=== PATIENT | female | born 1980 | race Caucasian/White ===

== ENCOUNTER 2017-10-25 16:02 | Emergency (ER) | payer SELFPAY ==
[2017-10-25] MEDS ORDERED: PROCHLORPERAZINE EDISYLATE INJ 10 MG/2 ML VIAL IV ONE (16:41)
[2017-10-25] MEDS ORDERED: KETOROLAC TROMETHAMINE INJ/PF 30 MG/1 ML SDV IV ONE (16:41)
[2017-10-25] MEDS ORDERED: NORMAL SALINE 1000 ML 1,000 ML IV ONE (16:41)
[2017-10-25] MEDS ORDERED: ONDANSETRON HCL INJ/PF 4 MG/2 ML SDV IV ONE (16:41)
--- NOTE | 2017-10-25 16:45 | ER Document Report ---
ED Medical Screen (RME) - General Chief Complaint: Headache Stated Complaint: HEADACHE/NECK PAIN Time Seen by Provider: 10/25/17 16:36 TRAVEL OUTSIDE OF THE [place] IN LAST 30 DAYS: No - HPI Notes: 10/25/17 16:44 Headache neck pain ongoing for 24 hours. States history of migraines but normally Excedrin will cure. Patient denies any trauma - Related Data Allergies/Adverse Reactions: cefuroxime [From Ceftin] Allergy (Verified 10/25/17 16:05) levofloxacin [From Levaquin] Allergy (Verified 10/25/17 16:05) Penicillins Allergy (Verified 10/25/17 16:05) Past Medical History - Social History Chew tobacco use (# tins/day): No Frequency of alcohol use: None Drug Abuse: None Pulmonary Medical History: Reports: Hx Asthma Neurological Medical History: Reports: Hx Migraine Renal/ Medical History: Denies: Hx Peritoneal Dialysis Past Surgical History: Reports: Hx Section, Hx Hysterectomy Review of Systems - Review of Systems Constitutional: Other - Headaches Physical Exam - Vital signs Vitals: Temp Pulse Resp BP Pulse Ox 98.4 F 63 20 161/107 H 98 10/25/17 16:11 10/25/17 16:11 10/25/17 16:11 10/25/17 16:11 10/25/17 16:11 - General General appearance: Appears well In distress: None Course - Vital Signs Vital signs: Temp Pulse Resp BP Pulse Ox 98.4 F 63 20 161/107 H 98 10/25/17 16:11 10/25/17 16:11 10/25/17 16:11 10/25/17 16:11 10/25/17 16:11
--- NOTE | 2017-10-25 17:25 | ER Document Report ---
ED Headache - General Chief Complaint: Headache Stated Complaint: HEADACHE/NECK PAIN Time Seen by Provider: 10/25/17 16:36 Mode of Arrival: Ambulatory Information source: Patient TRAVEL OUTSIDE OF THE [place] IN LAST 30 DAYS: No - HPI Patient complains to provider of: Headache Patient reports: Hx chronic headaches Onset: Other - 4 days Onset was: Gradual Timing: Worse Quality of pain: Achy, Fullness, Pressure Severity: Moderate Pain Level: 4 Associated symptoms: Neck pain Similar symptoms previously: Yes Recently seen / treated by doctor: No Notes: Patient is a 36-year-old female presenting to the emergency room today complaining of headache 4 days with worsening over the past 24 hours, radiating down her neck at times, she reports some occasional blurred vision, but denies nausea or vomiting, no fevers, no head injury, she does have a history of migraine headaches but her typical medications will not relieve this headache, she also has a history of hypertension but was taken off of her medications by her primary care provider because her blood pressures were under control at one point in time - Related Data Allergies/Adverse Reactions: cefuroxime [From Ceftin] Allergy (Verified 10/25/17 16:05) levofloxacin [From Levaquin] Allergy (Verified 10/25/17 16:05) Penicillins Allergy (Verified 10/25/17 16:05) Past Medical History - General Information source: Patient - Social History Smoking Status: Current Every Day Smoker Chew tobacco use (# tins/day): No Frequency of alcohol use: None Drug Abuse: None Family History: Reviewed & Not Pertinent Patient has suicidal ideation: No Patient has homicidal ideation: No Pulmonary Medical History: Reports: Hx Asthma Neurological Medical History: Reports: Hx Migraine Renal/ Medical History: Denies: Hx Peritoneal Dialysis Past Surgical History: Reports: Hx Section, Hx Hysterectomy Review of Systems - Review of Systems Constitutional: No symptoms reported EENT: No symptoms reported Cardiovascular: No symptoms reported Respiratory: No symptoms reported Gastrointestinal: No symptoms reported Genitourinary: No symptoms reported Female Genitourinary: No symptoms reported Musculoskeletal: No symptoms reported Skin: No symptoms reported Hematologic/Lymphatic: No symptoms reported Neurological/Psychological: See HPI -: Yes All other systems reviewed and negative Physical Exam - Vital signs Vitals: Temp Pulse Resp BP Pulse Ox 98.4 F 63 20 161/107 H 98 10/25/17 16:11 10/25/17 16:11 10/25/17 16:11 10/25/17 16:11 10/25/17 16:11 - Notes Notes: - General General appearance: Appears well, Alert In distress: None - HEENT Head: Normocephalic, Atraumatic Eyes: Normal Conjunctiva: Normal Extraocular movements intact: Yes Eyelashes: Normal Pupils: PERRL - Respiratory Respiratory status: No respiratory distress - Cardiovascular Rhythm: Regular - Abdominal Inspection: Normal - Back Back: Normal - Extremities General upper extremity: Normal inspection General lower extremity: Normal inspection - Neurological Neuro grossly intact: Yes Orientation: AAOx4 [place] Coma Scale Eye Opening: Spontaneous [place] Coma Scale Verbal: Oriented [place] Coma Scale Motor: Obeys Commands [place] Coma Scale Total: 15 - Psychological Associated symptoms: Normal affect, Normal mood - Skin Skin Temperature: Warm Skin Moisture: Dry Skin Color: Normal - HEENT Head: Normocephalic, Atraumatic Eyes: Normal Conjunctiva: Normal Extraocular movements intact: Yes Eyelashes: Normal Pupils: PERRL Sinus: Normal Nasal: Normal Mouth/Lips: Normal Mucous membranes: Normal Pharynx: Normal Neck: Other - Mild paraspinal muscle tenderness bilaterally, no midline tenderness or step-offs, no meningeal signs, patient is able to move her head and altered is without difficulty but does report worsens her headache at times Course - Re-evaluation Re-evalutation: 10/25/17 20:15 She is sleeping comfortably, easily awakens, reports feeling much better, headache is resolved, CT scan findings discussed at bedside which are unremarkable, patient will be discharged with prescription for antinausea meds to use for migraine headaches, advised to follow-up with primary care or neurology, return if symptoms worsen, patient acknowledges understanding and agreement with this plan - Vital Signs Vital signs: Temp Pulse Resp BP Pulse Ox 98.4 F 63 20 161/107 H 98 10/25/17 16:11 10/25/17 16:11 10/25/17 16:11 10/25/17 16:11 10/25/17 16:11 - Diagnostic Test Radiology reviewed: Image reviewed, Reports reviewed Discharge - Discharge Clinical Impression: Headache Qualifiers: Headache type: unspecified Headache chronicity pattern: acute headache Intractability: not intractable Qualified Code(s): R51 - Headache Condition: Stable Disposition: HOME, SELF-CARE Instructions: Antinausea Medication ([facility]), Headache ([facility]) Additional Instructions: Follow up with your primary care provider and neurologist in one to 2 days. Return to the emergency room immediately if symptoms worsen or any additional concerns. Prescriptions: Metoclopramide HCl [Reglan 10 mg Tablet] 1 - 2 tab PO ASDIR PRN #25 tablet PRN Reason: Ondansetron [Zofran Odt 4 mg Tablet] 1 - 2 tab PO Q4H #10 tab.rapdis Referrals: KYUNG GUERRA MD [NO LOCAL MD] - Follow up as needed
[2017-10-25] MEDS ORDERED: METOCLOPRAMIDE HCL INJ/PF 10 MG/2 ML SDV IV ONE (18:40)
[2017-10-25] MEDS ORDERED: DIPHENHYDRAMINE HCL 50 MG/ML VIAL IV ONE (18:40)
--- NOTE | 2017-10-25 19:38 | RADIOLOGY REPORT (SQ) ---
EXAM DESCRIPTION: CT HEAD WITHOUT COMPLETED DATE/TIME: 10/25/2017 7:10 pm REASON FOR STUDY: headache COMPARISON: None. TECHNIQUE: Axial images acquired through the brain without intravenous contrast. Images reviewed wi th bone, brain and subdural windows. Images stored on PACS. All CT scanners at this facility use dose modulation, iterative reconstruction, and/or weight based d osing when appropriate to reduce radiation dose to as low as reasonably achievable (ALARA). [facility]: Dose Right [facility]: CareDose [facility]: Dose Right [facility]: Teradose 4D [facility]: [employer] RADIATION DOSE: CT Rad equipment meets quality standard of care and radiation dose reduction techniq ues were employed. CTDIvol: 53.2 mGy. DLP: 911 mGy-cm. mGy. LIMITATIONS: None. FINDINGS: VENTRICLES: Normal size and contour. CEREBRUM: No masses. No hemorrhage. No midline shift. No evidence for acute infarction. Normal gra y/white matter differentiation. No areas of low density in the white matter. CEREBELLUM: No masses. No hemorrhage. No alteration of density. No evidence for acute infarction. EXTRAAXIAL SPACES: No fluid collections. No masses. ORBITS AND GLOBE: No intra- or extraconal masses. Normal contour of globe without masses. CALVARIUM: No fracture. PARANASAL SINUSES: No fluid or mucosal thickening. SOFT TISSUES: No mass or hematoma. OTHER: No other significant finding. IMPRESSION: NORMAL BRAIN CT WITHOUT CONTRAST. EVIDENCE OF ACUTE STROKE: NO. COMMENT: Quality ID # [id number]: Final reports with documentation of one or more dose reduction techniques (e.g., Automated exposure control, adjustment of the mA and/or kV according to patient size, use of iterative reconstruction technique) TECHNICAL DOCUMENTATION: JOB ID: [id number] [employer]- All Rights Reserved Reading location - IP/workstation name: [email or web address]
[2017-10-25 20:42] VITALS: BP 135/90
== END 2017-10-25 20:42 | disposition home or self-care (01) ==
LOC: ER 16:02
DX: R51 Headache (principal); M54.2 Cervicalgia; H53.8 Other visual disturbances; F17.200 Nicotine dependence, unspecified, uncomplicated; J45.909 Unspecified asthma, uncomplicated; I10 Essential (primary) hypertension; Z86.69 Personal history of other diseases of the nervous system and sense organs; Z88.1 Allergy status to other antibiotic agents; Z88.0 Allergy status to penicillin
CPT/HCPCS: 99284; 96361; 96374; 96375; 70450; J1200; J1885; J2765; J0780; J7030

== ENCOUNTER 2017-12-12 03:04 | Emergency (ER) | payer BC ==
[2017-12-12] MEDS ORDERED: DEXAMETHASONE SOD PHOS INJ 10 MG/1 ML VIAL IM ONE (04:16)
--- NOTE | 2017-12-12 04:21 | ER Document Report ---
ED General Pain - General Chief Complaint: Back Pain Stated Complaint: FLANK PAIN Time Seen by Provider: 12/12/17 04:06 Notes: Patient is a 37-year-old female presenting to the emergency department complaining of her right buttocks pain radiating down her right leg. Patient states she has a history of sciatic nerve impingement. Patient denies any surgeries for problem. Patient also denies any traumatic injuries recently. Denies numbness or tingling to any extremity, loss of bowel or bladder, urinary retention, fever. Patient states over the last few days she has been taking Tylenol and naproxen for the discomfort which has only helped a little bit. TRAVEL OUTSIDE OF THE [place] IN LAST 30 DAYS: No - Related Data Allergies/Adverse Reactions: cefuroxime [From Ceftin] Allergy (Verified 10/25/17 16:05) levofloxacin [From Levaquin] Allergy (Verified 10/25/17 16:05) Penicillins Allergy (Verified 10/25/17 16:05) Past Medical History - General Information source: Patient - Social History Smoking Status: Current Every Day Smoker Chew tobacco use (# tins/day): No Frequency of alcohol use: None Drug Abuse: None Lives with: Family Family History: Reviewed & Not Pertinent Patient has suicidal ideation: No Patient has homicidal ideation: No Pulmonary Medical History: Reports: Hx Asthma Neurological Medical History: Reports: Hx Migraine Renal/ Medical History: Denies: Hx Peritoneal Dialysis Past Surgical History: Reports: Hx Section, Hx Hysterectomy Review of Systems - Review of Systems Constitutional: No symptoms reported EENT: No symptoms reported Cardiovascular: No symptoms reported Respiratory: No symptoms reported Gastrointestinal: No symptoms reported Genitourinary: See HPI Female Genitourinary: No symptoms reported Musculoskeletal: See HPI Skin: No symptoms reported Hematologic/Lymphatic: No symptoms reported Neurological/Psychological: See HPI Physical Exam - Vital signs Vitals: Temp Pulse Resp BP Pulse Ox 97.9 F 81 18 146/96 H 97 12/12/17 03:05 12/12/17 03:05 12/12/17 03:05 12/12/17 03:05 12/12/17 03:05 - Notes Notes: GENERAL: Alert, interacts well. No acute distress. HEAD: Normocephalic, atraumatic. EYES: Pupils equal, round, and reactive to light. Extraocular movements intact. ENT: Oral mucosa moist, tongue midline. NECK: Full range of motion. Supple. Trachea midline. LUNGS: Clear to auscultation bilaterally, no wheezes, rales, or rhonchi. No respiratory distress. HEART: Regular rate and rhythm. No murmur ABDOMEN: Soft, non-tender. Non-distended. Bowel sounds present in all 4 quadrants. EXTREMITIES: Moves all 4 extremities spontaneously. No edema, normal radial and dorsalis pedis pulses bilaterally. No cyanosis. Patient states muscular pain upon palpation of her right buttocks and into posterior right leg. Pain upon straight leg raise right side 45. Left lower extremity, left upper extremity, right upper extremity within normal limits. BACK: no cervical, thoracic, lumbar midline tenderness. No saddle anesthesia, normal distal neurovascular exam. NEUROLOGICAL: Alert and oriented x3. Normal speech. cranial nerves II through XII grossly intact. PSYCH: Normal affect, normal mood. SKIN: Warm, dry, normal turgor. No rashes or lesions noted. Course - Re-evaluation Re-evalutation: 12/12/17 05:22 Pt. currently sleeping. Upon waking Pt up she states she feels "a lot better." Talked to Pt. about RX for Toradol at home and need to f/u with a PCP in the next 24-48. return precautions given. - Vital Signs Vital signs: Temp Pulse Resp BP Pulse Ox 98.0 F 79 18 122/72 93 12/12/17 05:46 12/12/17 05:46 12/12/17 03:05 12/12/17 05:46 12/12/17 05:46 Discharge - Discharge Clinical Impression: Sciatic nerve pain Qualifiers: Laterality: right Qualified Code(s): M54.31 - Sciatica, right side Condition: Stable Disposition: HOME, SELF-CARE Instructions: Warm Packs ([facility]) Additional Instructions: You have been seen and treated in the emergency department for sciatic nerve pain. You were given an NSAID and steroids for your discomfort. Continue prescriptions as needed. Return to the emergency department should your pain increased, numbness or tingling develop, you lose control of your bowels or bladder. Follow-up with your primary care in 24-48 hours. Prescriptions: Ketorolac Tromethamine [Toradol 10 mg Tablet] 10 mg PO Q8HP PRN #24 tablet PRN Reason: Referrals: MAYRA GALEANA MD [ACTIVE STAFF] - Follow up as needed
[2017-12-12 05:51] VITALS: BP 122/72
== END 2017-12-12 05:50 | disposition home or self-care (01) ==
LOC: ER 03:04
DX: M54.31 Sciatica, right side (principal); M54.9 Dorsalgia, unspecified; R10.9 Unspecified abdominal pain; M79.604 Pain in right leg; F17.200 Nicotine dependence, unspecified, uncomplicated; J45.909 Unspecified asthma, uncomplicated
CPT/HCPCS: 99283; 96372; J1100

== ENCOUNTER 2018-02-13 16:27 | Emergency (ER) | payer BC ==
--- NOTE | 2018-02-13 17:02 | ER Document Report ---
ED Medical Screen (RME) - General Chief Complaint: Diarrhea Stated Complaint: FLU LIKE SYMPTOMS Time Seen by Provider: 02/13/18 16:52 Notes: 37-year-old female patient started with sore throat and head and sinus congestion 1 week ago. Has been taking Sudafed. Began having fevers 5 days ago with temps up to 103. 3 days ago she began having diarrhea. Has been taking Imodium for this. Continues with all of these symptoms. She does have a history of asthma and lupus. There has not been a cough. I have greeted and performed a rapid initial assessment of this patient. A comprehensive ED assessment and evaluation of the patient, analysis of test results and completion of the medical decision making process will be conducted by additional ED providers. TRAVEL OUTSIDE OF THE [place] IN LAST 30 DAYS: No - Related Data Allergies/Adverse Reactions: cefuroxime [From Ceftin] Allergy (Verified 02/13/18 16:28) levofloxacin [From Levaquin] Allergy (Verified 02/13/18 16:28) Penicillins Allergy (Verified 02/13/18 16:28) Past Medical History - Social History Frequency of alcohol use: None Drug Abuse: None Pulmonary Medical History: Reports: Hx Asthma Neurological Medical History: Reports: Hx Migraine Renal/ Medical History: Denies: Hx Peritoneal Dialysis Past Surgical History: Reports: Hx Section, Hx Hysterectomy Physical Exam - Vital signs Vitals: Temp Pulse Resp BP Pulse Ox 98.9 F 110 H 16 121/81 96 02/13/18 16:31 02/13/18 16:31 02/13/18 16:31 02/13/18 16:31 02/13/18 16:31 Course - Vital Signs Vital signs: Temp Pulse Resp BP Pulse Ox 98.9 F 110 H 16 121/81 96 02/13/18 16:31 02/13/18 16:31 02/13/18 16:31 02/13/18 16:31 02/13/18 16:31
[2018-02-13 17:22] LABS: ABSOLUTE BASOPHILS # (AUTO) 0.1 10^3/uL (0.0-0.2); ABSOLUTE EOSINOPHILS # (AUTO) 0.3 10^3/uL (0.0-0.6); ABSOLUTE LYMPHOCYTES (AUTO) 2.7 10^3/uL (0.5-4.7); ABSOLUTE MONOCYTES (AUTO) 1.4 10^3/uL (0.1-1.4); BASOPHILS % (AUTO) 0.7 % (0-2); EOSINOPHILS % (AUTO) 1.5 % (0-6); HEMATOCRIT 43.3 % (36.0-47.0); HEMOGLOBIN 14.4 g/dL (12.0-15.5); LYMPHOCYTES % (AUTO) 16.4 % (13-45); MEAN CORPUSCULAR HEMOGLOBIN 28.8 pg (27.0-33.4); MEAN CORPUSCULAR HGB CONC 33.4 g/dL (32.0-36.0); MEAN CORPUSCULAR VOLUME 86 fl (80-97); MONOCYTES % (AUTO) 8.3 % (3-13); PLATELET COUNT 429 10^3/uL (150-450); RED BLOOD COUNT 5.02 10^6/uL (3.72-5.28); RED CELL DISTRIBUTION WIDTH 15.3 % (11.5-14.0); SEGMENTED NEUTROPHILS % (AUTO) 73.1 % (42-78); TOTAL CELLS COUNTED % (AUTO) 100 %; WHITE BLOOD COUNT 16.4 10^3/uL (4.0-10.5)
[2018-02-13 17:38] LABS: ALANINE AMINOTRANSFERASE 40 U/L (9-52); ALBUMIN 4.3 g/dL (3.5-5.0); ALKALINE PHOSPHATASE 105 U/L (38-126); ANION GAP 13 (5-19); ASPARTATE AMINO TRANSFERASE 44 U/L (14-36); BILIRUBIN,DIRECT 0.3 mg/dL (0.0-0.4); BILIRUBIN,TOTAL 0.4 mg/dL (0.2-1.3); BLOOD UREA NITROGEN 6 mg/dL (7-20); CALCIUM 9.7 mg/dL (8.4-10.2); CARBON DIOXIDE 28 mmol/L (22-30); CHLORIDE 102 mmol/L (98-107); GLUCOSE 94 mg/dL (75-110); POTASSIUM 4.3 mmol/L (3.6-5.0); SODIUM 143.2 mmol/L (137-145); TOTAL PROTEIN 7.3 g/dL (6.3-8.2)
--- NOTE | 2018-02-13 18:01 | ER Document Report ---
ED General - General Chief Complaint: Diarrhea Stated Complaint: FLU LIKE SYMPTOMS Time Seen by Provider: 02/13/18 16:52 Notes: Patient says that she began to be sick about a week ago with nasal congestion and a sore throat. After 2-3 days, her symptoms improved and she felt better and no longer had the sore throat. About 3-4 days ago, patient developed nausea and diarrhea but not vomiting. She has noticed some blood in the toilet which she thinks is due to a hemorrhoid. No swollen areas are there. She says in the last 4 days, she has been running intermittent fevers of 101 - 102 degrees. Still has some runny nose. Has a history of developing pneumonia when she has symptoms like this. She has asthma. Also continues to smoke 1/2 pack of cigarettes a day. Patient was diagnosed with lupus in 2005. Patient recently had back surgery, about 1 month ago, for emergency herniation of L5-S1 disc. She had been having problems with her back for several months and taken multiple prednisone Dosepaks , but has not had any prednisone for about a week now. Patient has bipolar disorder and depression. TRAVEL OUTSIDE OF THE [place] IN LAST 30 DAYS: No - Related Data Allergies/Adverse Reactions: cefuroxime [From Ceftin] Allergy (Verified 02/13/18 16:28) levofloxacin [From Levaquin] Allergy (Verified 02/13/18 16:28) Penicillins Allergy (Verified 02/13/18 16:28) Past Medical History - Social History Smoking Status: Current Every Day Smoker Frequency of alcohol use: None Drug Abuse: None Family History: Reviewed & Not Pertinent Patient has suicidal ideation: No Patient has homicidal ideation: No Pulmonary Medical History: Reports: Hx Asthma Neurological Medical History: Reports: Hx Migraine Past Surgical History: Reports: Hx Section, Hx Hysterectomy Review of Systems - Review of Systems Notes: REVIEW OF SYSTEMS: CONSTITUTIONAL : See HPI. Intermittent fever for 4 - 5 days. EENT: Denies eye, ear, nose or mouth or throat pain or other symptoms. CARDIOVASCULAR: Denies chest pain. RESPIRATORY: Denies cough, chest congestion, or shortness of breath. GASTROINTESTINAL: Denies abdominal pain or nausea, vomiting, or diarrhea. GENITOURINARY: Denies difficulty or painful urinating, urinary frequency, blood in urine. Does not get frequent UTIs. Is making normal amount of urine. MUSCULOSKELETAL: Chronic back pain, better since she had emergency surgery for a herniated disc about a month ago. Denies neck pain. Denies joint pain or swelling. SKIN: Denies rash or skin lesions. NEUROLOGICAL: Denies LOC or altered mental status. Denies current headache. Denies sensory loss or motor deficits. ALL OTHER SYSTEMS REVIEWED AND NEGATIVE. Physical Exam - Vital signs Vitals: Temp Pulse Resp BP Pulse Ox 98.9 F 110 H 16 121/81 96 02/13/18 16:31 02/13/18 16:31 02/13/18 16:31 02/13/18 16:31 02/13/18 16:31 Interpretation: Normal, Tachycardic - Mild - Notes Notes: PHYSICAL EXAMINATION: GENERAL: Well-appearing, in no acute distress. 135 kg. HEAD: Atraumatic, normocephalic. EYES: Pupils equal round and reactive to light, extraocular movements intact. ENT: oropharynx erythematous but without exudates. Moist mucous membranes. Voice is normal. No hoarseness. Can swallow without difficulty. NECK: Normal range of motion, supple. No stiffness at all to flexion. LUNGS: Breath sounds clear and equal bilaterally. HEART: Regular rate and rhythm without murmurs. Slightly tachycardic at just over 100 at the bedside by me. ABDOMEN: Soft, nontender. No guarding or rebound. No masses. BACK: No tenderness throughout entire back. EXTREMITIES: Normal range of motion without pain. NEUROLOGICAL: Normal speech, normal gait. Normal sensory, motor, and reflex exams. Awake, alert, and oriented x3. Cranial nerves normal. PSYCH: Normal mood, normal affect. SKIN: Warm, dry, no rashes. Course - Re-evaluation Re-evalutation: 02/13/18 18:48 With exception of her white cell count of 16,400 with a normal differential, patient's remaining studies are all essentially normal. Rapid strep and flu test were both negative. Urinalysis negative. Chest x-ray normal to me. Chem- 12 essentially normal. Cultures have been obtained. Patient is unable to give a stool specimens and says this is the longest she has gone without bowel movements in 5 days. 02/13/18 19:49 Patient still has not been able to get a stool specimen for us. I am going to send her home with a order for an outpatient stool culture and C. difficile if she still having symptoms Thursday. She needs medication for nausea so I will send her home with some Zofran. We will observe for any signs of a source for infection. - Vital Signs Vital signs: Temp Pulse Resp BP Pulse Ox 98.9 F 110 H 16 121/81 96 02/13/18 16:31 02/13/18 16:31 02/13/18 16:31 02/13/18 16:31 02/13/18 16:31 - Laboratory Result Diagrams: 02/13/18 17:09 02/13/18 17:09 Laboratory results interpreted by me: 02/13/18 02/13/18 02/13/18 17:09 17:09 17:51 WBC 16.4 H RDW 15.3 H Absolute Neutrophils 12.0 H BUN 6 L AST 44 H Ur Leukocyte Esterase TRACE H - Diagnostic Test Radiology results interpreted by me: 02/13/18 18:48 Chest x-ray is normal. Discharge - Discharge Clinical Impression: Diarrhea, Leukocytosis, Lupus Condition: Stable Disposition: HOME, SELF-CARE Additional Instructions: VOMITING: Vomiting (or nausea without vomiting) can be caused by many other different problems. It can mean that something's wrong with the stomach, such as ulcers or inflammation or the intestinal tract, such as appendicitis. But it can also be a symptom of a problem that has nothing to do with the stomach or intestines. Vomiting is common with severe headaches, earaches, tonsillitis, and kidney infections, etc. We see it with pneumonia or heart attacks. Drugs can cause nausea and vomiting. Many abdominal problems cause vomiting; for example, gallstones, kidney stones, pancreatitis, and intestinal obstruction ( blocked bowels). In most cases, curing the vomiting depends on fixing the problem that caused it. For temporary relief, we may use an anti-nausea medicine. For home use, we can prescribe suppositories, chewable pills, pills that dissolve in the mouth, or liquid anti-nausea drugs. If the vomiting seems to be caused by a problem in the stomach, acid-suppressing drugs may be prescribed as well. It's important to avoid dehydration. Sip small amounts of clear liquids ( soft drinks, tea, broth, etc) . Try to take fluids frequently even if you are vomiting to prevent dehydration. Take increasing amounts of fluid and when liquids are being consumed successfully, advance to small amounts of bland food (toast, soups, mashed potatoes, etc.) until you are able to resume a regular diet. Avoid aspirin, tobacco, and alcohol. If the vomiting worsens, if the problem that's making you vomit worsens, or if there's evidence of bleeding in the stomach (such as black, tarry stool, or bloody or black vomit), you should return immediately. Also, return if abdominal pain worsens or becomes localized to one area or you develop high fever. Call your doctor if you aren't improved in 24 hours. DIARRHEA, NON-SPECIFIC: Diarrhea means frequent, watery stools. There are many causes. Any problem that keeps the intestinal tract from absorbing water from the stool can lead to diarrhea. A sudden new diarrhea problem is usually caused by a virus, food sensitivity, toxic bacteria, or drugs. In this case, we expect the problem to go away soon. Testing is done only if you seem seriously ill from the diarrhea. If you have chronic diarrhea, or diarrhea that keeps coming back, we need to find out why. Chronic diarrhea can be due to inflammation of the bowels such as Crohn's disease or ulcerative colitis, food sensitivity such as intolerance to lactose or wheat protein, irritable bowel syndrome, and other problems. If your diarrhea is a significant problem but it's not clear why you have it, we' ll refer you to a specialist for further testing. During an episode of diarrhea, drink small amounts (two to six ounces) of clear liquids (soft drinks, sport drinks, herb teas, broth, etc). Take fluids frequently to prevent dehydration. It's usually not a problem to take mild anti- diarrhea medication such as Kaopectate or Pepto-Bismol. As the diarrhea eases, advance to small amounts of bland food (mashed potato, toast) for 24 hours. Call the physician if blood appears in your vomit or stool, if vomiting lasts longer than 24 hours, if the abdominal pain worsens or becomes localized to one area, if you develop high fever, or if you become lightheaded and weak. Leukocytosis Leukocytosis is an elevation or increase in the number of white blood cells. Nearly all leukocytosis is due to one type of white blood cell, the polymorphonuclear leukocyte (PMN). These conditions are more accurately referred to as neutrophilia. The most common and important cause of neutrophilia is infection, and most infections cause neutrophilia. The degree of elevation often indicates the severity of the infection. Tissue damage from other causes raises the white count for similar reasons. Burnett, infarction (cutting off the blood supply to a region of the body so that it dies), crush injuries, inflammatory diseases, poisonings, and severe diseases, like kidney failure and diabetic ketoacidosis, all cause neutrophilia. Counts almost as high occur in leukemoid (leukemia-like) reactions caused by infection and non-infectious inflammation. Drugs can also cause leukocytosis. Cortisone-like drugs prednisone, lithium , and NSAIDs are the most common offenders. Non-specific stresses also cause white blood cells to increase in the blood. Extensive testing of medical students reveals that neutrophilia accompanies every examination. Vigorous exercise and intense excitement also cause elevated white blood cell counts. VIRAL SYNDROME: The physician has diagnosed a viral infection. Viruses not only cause "colds," but can cause many different symptoms including generalized aching, fever, headache, cough, diarrhea, nausea, vomiting, and fatigue. The treatment, for the most part, is simply relief of symptoms. This means that antibiotics are usually not given. Rest, fluids, pain medications and, occasionally, medication for the specific symptoms that are most bothersome will be prescribed. Use good handwashing to avoid passing the virus to others. Shared toys should be cleaned with disinfectant. Clean the toilets, sinks, and counter surfaces in bathrooms. Launder clothing in hot water. Contact the physician if you develop any new or unusual symptoms such as severe headache, stiff neck, high fever, chest pain, productive cough, or shortness of breath. You should be rechecked if you don't see marked improvement within seven to 10 days. INTRAVENOUS (I V) FLUIDS: As part of your care today, you received intravenous (IV) fluids. IV fluids are administered to patients who are dehydrated or to those who have certain chemical (electrolyte) abnormalities that need correcting. ANTINAUSEA MEDICATION: You have been given a medication to suppress nausea and vomiting. This type of medication can be given as a shot, pill, or suppository. It will usually last for many hours. Pills and shots usually last six to eight hours. For the typical illness, only one or two doses of the medication may be necessary. Mild lightheadedness may occur. This type of medicine can cause drowsiness. Do not drive or operate dangerous machinery while under its influence. Do not mix with alcohol. See your doctor at once if you have muscle spasms or tightness, or uncontrollable motions (particularly of the neck, mouth, or jaw). Persistent vomiting or severe lightheadedness should also be evaluated by the physician. FOLLOW-UP CARE: If you have been referred to a physician for follow-up care, call the physician s office for an appointment as you were instructed or within the next two days. If you experience worsening or a significant change in your symptoms, notify the physician immediately or return to the Emergency Department at any time for re-evaluation. Prescriptions: Ondansetron [Zofran Odt 4 mg Tablet] 1 - 2 tab PO Q4H PRN #15 tab.rapdis PRN Reason: For Nausea/Vomiting Forms: Follow-Up Laboratory Testing
[2018-02-13 18:06] LABS: APPEARANCE,URINE SLIGHTLY-CLOUDY; BILIRUBIN,URINE NEGATIVE (NEGATIVE); COLOR,URINE YELLOW; GLUCOSE, URINE NEGATIVE (NEGATIVE); KETONES,URINE NEGATIVE (NEGATIVE); LEUKOCYTE ESTERASE,URINE TRACE (NEGATIVE); NITRITE,URINE NEGATIVE (NEGATIVE); PROTEIN,URINE NEGATIVE (NEGATIVE); URINE SPECIFIC GRAVITY 1.012; UROBILINOGEN,URINE NEGATIVE mg/dL (<2.0)
[2018-02-13] MEDS: NORMAL SALINE 1000 ML 1,000 ML IV PRN ×2 (18:06→18:07)
[2018-02-13 18:28] LABS: A TYPE INFLUENZA AG NEGATIVE (NEGATIVE); B INFLUENZA AG NEGATIVE (NEGATIVE)
--- NOTE | 2018-02-13 18:42 | RADIOLOGY REPORT (SQ) ---
EXAM DESCRIPTION: CHEST 2 VIEWS COMPLETED DATE/TIME: 02/13/2018 6:21 pm REASON FOR STUDY: Cough, congestion, fever, Hx of lupus, Hx PN COMPARISON: None. EXAM PARAMETERS: NUMBER OF VIEWS: two views TECHNIQUE: Digital Frontal and Lateral radiographic views of the chest acquired. RADIATION DOSE: NA LIMITATIONS: none FINDINGS: LUNGS AND PLEURA: No opacities, masses or pneumothorax. No pleural effusion. MEDIASTINUM AND HILAR STRUCTURES: No masses or contour abnormalities. HEART AND VASCULAR STRUCTURES: Heart normal size. No evidence for failure. BONES: No acute findings. HARDWARE: None in the chest. OTHER: No other significant finding. IMPRESSION: NO ACUTE RADIOGRAPHIC FINDING IN THE CHEST. TECHNICAL DOCUMENTATION: JOB ID: [id number] [employer]- All Rights Reserved Reading location - IP/workstation name: [email or web address]
[2018-02-13 19:59] VITALS: BP 136/85
[2018-02-13] MEDS ORDERED: ONDANSETRON ODT 4 MG TAB (6 TAB/ER DISP) PO PRN (20:02)
[2018-02-13] MEDS ORDERED: ONDANSETRON HCL INJ/PF 4 MG/2 ML SDV IV ONE (20:07)
== END 2018-02-13 20:41 | disposition home or self-care (01) ==
LOC: ER 16:27
DX: R19.7 Diarrhea, unspecified (principal); R09.81 Nasal congestion; D72.829 Elevated white blood cell count, unspecified; F17.210 Nicotine dependence, cigarettes, uncomplicated; Z88.0 Allergy status to penicillin; Z90.710 Acquired absence of both cervix and uterus
CPT/HCPCS: 99284; 96374; 36415; 87040; 87045; 87070; 89055; 87205; 87880; 85025; 87077; 80053; 81001; 87493; 87804; 71046; J2405; J7030